=== PATIENT | female | born 1955 | race Caucasian/White ===

== ENCOUNTER 2019-04-20 15:54 | Inpatient (IN) | payer BC, OTHER ==
[~2019-04-20] VITALS: Ht 152.4 cm; Wt 63.2 kg
[~2019-04-20 15:54] MED LIST: ACET500T84 PO; ALPR0.25 PO; CARV12.579 PO; CITA10TA5 PO; LOVA20TA PO; OMEP20CA16 PO; SIMV40TA3 PO; [UNRECOGNIZED DRUG - REMARK]
--- NOTE | 2019-04-20 16:16 | ERD ---
ER Documentation Chief Complaint Chief Complaint Chest pain HPI The patient is a 63-year-old female, presenting to the ER from [facility] emergency department for admission because of acute chest pain. She is boarding in the emergency department. She had a stress test this morning, half way to the stress test she began to have left-sided chest pain radiating up to the left side of the neck; therefore the stress test was aborted, according to the chart there were T wave inversion. She was then treated with 3 nitroglycerin with minimal response and sent to the [facility] ER for evaluation. She received morphine about 12 PM with good response. The pain is not coming back 05/19, she denies chest pain with vomiting/diaphoresis, dyspnea, dominant pain, vomiting. She used to smoke until 20 years ago I have reviewed extensively work-ups from [facility] emergency department Past medical history: Anxiety, dyslipidemia, depression, CAD, cervical and lumbar radiculopathy Past surgical history: None ROS All systems reviewed and are negative except as per history of present illness. Medications Home Meds Reported Medications Alprazolam* (Xanax*) 0.25 Mg Tablet, 0.25 MG PO for ANXIETY, TAB 07/10/15 Omeprazole* (Omeprazole*) 20 Mg Capsule.dr, 20 MG PO DAILY 03/14/12 Simvastatin (Simvastatin) 40 Mg Tablet, 40 MG PO HS 03/14/12 Carvedilol* (Carvedilol*) 12.5 Mg Tablet, 12.5 MG PO BID 03/14/12 Citalopram Hydrobromide* (Citalopram Hydrobromide*) 10 Mg Tablet, 10 MG PO DAILY 03/14/12 Lovastatin* (Lovastatin*) 20 Mg Tablet, 20 MG PO DAILY 03/14/12 Acetaminophen (Q-Pap Extra Strength) 500 Mg Tablet, 500 MG PO BID 03/14/12 [Family Did Not Bring] No Conflict Check 03/13/12 Allergies Allergies: Coded Allergies: Penicillins (Verified Allergy, Mild, 12/22/13) Codeine (Verified Allergy, Unknown, 12/22/13) PMhx/Soc History of Surgery: Yes (LIPOMA REMOVED FROM BACK, R EAR OPERATION) Anesthesia Reaction: No Hx Neurological Disorder: No Hx Respiratory Disorders: Yes (SOB AT TIMES) Hx Cardiac Disorders: Yes (HTN, HIGH CHOLESTEROL 2 NC) Hx Psychiatric Problems: Yes (ANXIETY) Hx Miscellaneous Medical Probl: No Hx Alcohol Use: Yes (RARE WINE) Hx Substance Use: No Hx Tobacco Use: No (QUIT 2004) Physical Exam Vitals Vital Signs Date Temp Pulse Resp B/P (MAP) Pulse Ox O2 O2 Flow FiO2 Time Delivery Rate 04/20/19 99.0 47 16 141/64 96 16:17 (89) Physical Exam Const: No acute distress. Head: Atraumatic. Eyes: Normal Conjunctiva. ENT: Normal External Ears, Nose and Mouth. Neck: Full range of motion. No meningismus. Resp: Clear to auscultation bilaterally. Cardio: Regular rate and rhythm. Abd: Soft, non distended, normal bowel sounds, non tender. Skin: No petechiae or rashes. Back: No midline or flank tenderness. Ext: No cyanosis, or edema. Neur: Awake and alert. No focal deficit Psych: Normal Mood and Affect. Results 24 hrs Current Medications Medications Dose Sig/Michelle Start Time Status Last (Trade) Ordered Route PRN Stop Time Admin Dose Reason Admin Morphine 2 mg ONCE STAT 04/20/19 DC 04/20/19 Sulfate IV 16:27 16:38 (morphine) 04/20/19 16:29 Ondansetron 4 mg ONCE STAT 04/20/19 DC 04/20/19 HCl (Zofran IV 16:27 16:37 Inj) 04/20/19 16:29 Famotidine 20 mg ONCE ONCE 04/20/19 04/20/19 (Pepcid Iv) IV 17:00 16:54 04/20/19 17:01 Procedures/MDM EKG: Read by emergency physician Rate/Rhythm: Sinus bradycardia 43 beats/min QRS, ST, T-waves: No ST elevation, anterior T wave inversion Impression: Abnormal EKG MEDICAL MAKING DECISION: The patient is a 63-year-old female with multiple cardiac risk factors, presenting with acute chest pain with abnormal EKG, concerning for acute ACS. She was treated with morphine 2 mg IV for recurrent chest pain and Zofran IV for nausea with good response. The differential diagnoses considered include but are not limited to acute coronary syndrome, acute myocardial infarction, pericarditis, pulmonary embolism, aortic dissection, pneumonia, pleural effusion, pneumothorax, GERD, chest wall pain. Departure Diagnosis: Primary Impression: Chest pain Additional Impression: Bradyarrhythmia Condition: Stable Comments I discussed the findings with the patient. I discussed the patient with Dr Luther at , who was made aware of the lab, the treatment, the patient condition. The patient is admitted to [facility] Disclaimer: Inadvertent spelling and grammatical errors are likely due to EHR/dictation software use and do not reflect on the overall quality of patient care. Also, please note that the electronic time recorded on this note does not necessarily reflect the actual time of the patient encounter. DESIREE FRENCH MD Apr 20, 2019 16:16
[2019-04-20] MEDS ORDERED: ONDANSETRON 4 MG INJ IV STA (16:27)
[2019-04-20] MEDS ORDERED: morphine 2 MG INJ IV STA (16:27)
[2019-04-20] MEDS ORDERED: FAMOTIDINE 20 MG INJ IV ONE (17:00)
[2019-04-20] MEDS ORDERED: RANI150T5 PO (17:06)
[2019-04-20] MEDS ORDERED: ALPR0.5T6 PO (17:06)
[2019-04-20] MEDS ORDERED: ACET325T45 PO (17:06)
[2019-04-20] MEDS ORDERED: MELO15TA30 PO (17:07)
[2019-04-20] MEDS ORDERED: ATEN50TA PO (17:07)
[2019-04-20] MEDS ORDERED: OMEP20CA16 PO (17:08)
[2019-04-20] MEDS ORDERED: OMEG1CAP90 PO (17:08)
[2019-04-20] MEDS ORDERED: ENAL5TAB PO (17:09)
[2019-04-20] MEDS ORDERED: NITR0.4T32 SL (17:09)
[2019-04-20] MEDS ORDERED: NACL 0.9% 3 ML SYG IV SCH (17:30)
--- NOTE | 2019-04-20 18:33 | HP ---
Date/Time of Note Date/Time of Note DATE: 04/20/19 TIME: 18:27 Assessment/Plan VTE Prophylaxis SCD applied (from Nsg): Yes Pharmacological prophylaxis: heparin Lines/Catheters IV Catheter Type (from Nrsg): Saline Lock Assessment/Plan Hospital Course 63 yo female with reported history of CAD (though not entirely clear details), hypertension who presents from [place] after positive stress testing - Consult Dr Velasquez for consideration of angiography - Cycle troponins - Check TTE - Aspirin, statin - She is bradycardic so I will hold further beta paul Hypertension: - Continue enalapril HPI/ROS Admit Date/Time Admit Date/Time Hx of Present Illness 63 yo female with reported history of CAD who presents from [place] after abnormal stress test Patient has had exterional angina over past weeks. 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 This was done at [facility]. During stress testing she became hypotensive with chest pain and dizziness. She was given nitro without much relief. She was sent to the ED where troponin was negative. Found to have some bradycardia. Early R wave progression and some T wave abnormaltiies. Sent her for angiography. Currently feels well. No complaints at this time ROS Constitutional: no complaints, improved Eyes: no complaints ENT: no complaints Respiratory: no complaints Cardiovascular: no complaints Gastrointestinal: no complaints Genitourinary: no complaints Musculoskeletal: no complaints Skin: no complaints Neurologic: no complaints Endocrine: no complaints Lymphatic: no complaints Psychological: no complaints, nl mood/affect Immunologic: no complaints PMH/Family/Social Past Medical History Medical History: coronary artery disease Medications Current Medications IV Flush (NS 3 ml) 3 ml PER PROTOCOL IV ; Start 04/20/19 at 17:30 Acetaminophen/ Hydrocodone Bitart ([place] (5/325)) 1 tab Q6H PRN PO .MOD PAIN 4- 6; Start 04/20/19 at 17:30 Aspirin (Aspirin) 81 mg DAILY PO ; Start 04/21/19 at 09:00 Atorvastatin Calcium (Lipitor) 80 mg HS PO ; Start 04/20/19 at 21:00 Alprazolam (Xanax) 0.5 mg DAILY PRN PO ANXIETY; Start 04/20/19 at 17:30 Atenolol (Tenormin) 50 mg DAILY PO ; Start 04/21/19 at 09:00 Enalapril Maleate (Vasotec) 5 mg DAILY PO ; Start 04/21/19 at 09:00 Ranitidine HCl (Zantac) 150 mg Q12 PO ; Start 04/20/19 at 21:00 Coded Allergies: Penicillins (Verified Allergy, Mild, 04/20/19) codeine (Verified Allergy, Unknown, 04/20/19) Past Surgical History Past Surgical Hx: no surgical history Family History Significant Family History: no pertinent family hx Social History Alcohol Use: none Smoking Status: Former smoker Drug Use: none Exam/Review of Systems Vital Signs Vitals Vital Signs Date Temp Pulse Resp B/P (MAP) Pulse Ox O2 O2 Flow FiO2 Time Delivery Rate 04/20/19 99.0 47 16 141/64 96 16:17 (89) Exam Constitutional: alert, oriented, well developed Psych: no complaints, nl mood/affect Head: normocephalic, atraumatic Eyes: nl conjunctiva, EOMI, nl lids, nl sclera, PERRL ENMT: nl external ears & nose, nl lips & teeth, nl nasal mucosa & septum Neck: supple, non-tender Respiratory: clear to auscultation, normal air movement Cardiovascular: regular rate and rhythm, nl pulses Gastrointestinal: soft, nl liver, spleen, non-tender Musculoskeletal: nl extremities to inspection Extremities: normal pulses Neurological: NUMBERER AND WIRER II-XII intact, nl mental status, nl speech, nl strength Skin: nl turgor; No rash or lesions Lymph: nl lymph nodes ZEYAD RAYGOZA MD Apr 20, 2019 18:33
[2019-04-20] MEDS: HYDROCODONE/APAP (5/325) TAB PO PRN (18:44)
[2019-04-20] MEDS ORDERED: KETOROLAC 15 MG INJ IV STA (20:59)
[2019-04-20] MEDS: ATORVASTATIN 80 MG TAB PO SCH (21:26)
[2019-04-20 22:50] VITALS: BP 170/67; PULSE 50; RESP 20; Ht 152.4 cm; Wt 63.2 kg
[2019-04-20 22:55] VITALS: PULSE 49
[2019-04-20] MEDS: ALPRAZOLAM 0.5 MG TAB PO PRN (23:24)
[2019-04-20] MEDS: RANITIDINE 150 MG TAB PO SCH (23:24)
[2019-04-20] MEDS: morphine 2 MG INJ IV PRN (23:25)
[2019-04-21] VITALS (11 sets, daily range): BP systolic 118–168; BP diastolic 55–78; PULSE 46–68; RESP 18–22
[2019-04-21] MEDS: ASPIRIN 81 MG TAB PO SCH (08:58)
[2019-04-21] MEDS: RANITIDINE 150 MG TAB PO SCH ×2 (08:58→20:31)
[2019-04-21] MEDS: ACETAMINOPHEN 325 MG TAB PO PRN ×2 (08:59→19:19)
[2019-04-21] MEDS ORDERED: ATENOLOL 50 MG TAB PO SCH (09:00)
[2019-04-21] MEDS: ENALAPRIL 5 MG TAB PO SCH ×2 (09:00→12:22)
[2019-04-21] MEDS: HYDROCODONE/APAP (5/325) TAB PO PRN (12:35)
[2019-04-21] MEDS: morphine 2 MG INJ IV PRN (13:47)
--- NOTE | 2019-04-21 14:35 | PN ---
Date/Time of Note Date/Time of Note DATE: 04/21/19 TIME: 14:30 Assessment/Plan VTE Prophylaxis Risk score (from Ns)>0 risk: 2 SCD applied (from Ns): No SCD contraindicated: low risk/ambulating Pharmacological prophylaxis: NA/contraindicated Pharm contraindication: low risk/ambulating Lines/Catheters IV Catheter Type (from Nrsg): Saline Lock Assessment/Plan Assessment/Plan 1. Acute chest pain - improved - noted abnl stress test at outside hospital - negative serial troponins - morphine and Nitro PRN pain - ECHO pending - Cardiology consultation placed for further recommendations. Patient followed by Dr. Murray as outpatient 2. HTN - stable - continue current medications 3. Bradycardia - hold for BB 4. Disposition - Cardiology consultation pending for further recommendations Result Diagram: 04/21/1951804/21/19518 Results 24hrs Laboratory Tests Test 04/20/19 19:43 04/21/19 00:41 04/21/19 05:19 Sodium Level 141 139 Potassium Level 4.4 4.7 Chloride Level 109 108 Carbon Dioxide Level 25 24 Anion Gap 7 7 Blood Urea Nitrogen 14 17 Creatinine 0.66 0.72 Est Glomerular Filtrat Rate mL/min > 60 > 60 Glucose Level 93 97 Calcium Level 9.3 9.3 Troponin I < 0.012 < 0.012 < 0.012 White Blood Count 6.7 6.4 Red Blood Count 3.96 L 3.99 L Hemoglobin 12.8 12.9 Hematocrit 37.7 37.8 Mean Corpuscular Volume 95.2 94.7 Mean Corpuscular Hemoglobin 32.3 32.3 Mean Corpuscular Hemoglobin Concent 34.0 34.1 Red Cell Distribution Width 11.1 L 11.1 L Platelet Count 225 225 Mean Platelet Volume 9.4 9.4 Immature Granulocytes % 0.100 0.300 Neutrophils % 55.2 37.9 L Lymphocytes % 39.6 54.4 H Monocytes % 4.0 5.5 Eosinophils % 0.7 1.3 Basophils % 0.4 0.6 Nucleated Red Blood Cells % 0.0 0.0 Immature Granulocytes # 0.010 0.020 Neutrophils # 3.7 2.4 Lymphocytes # 2.7 3.5 H Monocytes # 0.3 0.4 Eosinophils # 0.1 0.1 Basophils # 0.0 0.0 Nucleated Red Blood Cells # 0.0 0.0 Creatine Kinase 98 92 Creatine Kinase Index 1.0 1.1 Creatinine Kinase MB (Mass) 0.98 0.97 Hemoglobin A1c 6.0 H Total Bilirubin 0.7 Direct Bilirubin 0.00 Indirect Bilirubin 0.7 Aspartate Amino Transf (AST/SGOT) 30 Alanine Aminotransferase (ALT/SGPT) 39 Alkaline Phosphatase 63 Total Protein 6.3 Albumin 3.7 Globulin 2.60 Albumin/Globulin Ratio 1.42 Subjective 24 Hr Interval Summary Free Text/Dictation Patient states chest pain is slightly better but still present. No acute overnight events. Exam/Review of Systems Exam Vitals Vital Signs Date Temp Pulse Resp B/P (MAP) Pulse Ox O2 O2 Flow FiO2 Time Delivery Rate 04/21/19 97.8 68 22 146/71 96 Room Air 12:11 (96) 04/20/19 2.0 22:50 Intake and Output 04/20/19 04/20/19 04/21/19 1515:00 23:00 07:00 IntakeIntake Total 300 ml BalanceBalance 300 ml Exam General: No Acute distress Neck: Supple Chest: Nontender Lungs: Clear to auscultation bilaterally no crackles rales or wheezing Heart: Normal S1-S2, Regular rhythm and rate. No murmur, S3, or S4 Abdomen: Soft , nontender, nondistended , bowel sounds are present. No guarding no rebound tenderness Extremities: Normal to inspection, no edema no cyanosis Results Results 24hrs Laboratory Tests Test 04/20/19 19:43 04/21/19 00:41 04/21/19 05:19 Sodium Level 141 139 Potassium Level 4.4 4.7 Chloride Level 109 108 Carbon Dioxide Level 25 24 Anion Gap 7 7 Blood Urea Nitrogen 14 17 Creatinine 0.66 0.72 Est Glomerular Filtrat Rate mL/min > 60 > 60 Glucose Level 93 97 Calcium Level 9.3 9.3 Troponin I < 0.012 < 0.012 < 0.012 White Blood Count 6.7 6.4 Red Blood Count 3.96 L 3.99 L Hemoglobin 12.8 12.9 Hematocrit 37.7 37.8 Mean Corpuscular Volume 95.2 94.7 Mean Corpuscular Hemoglobin 32.3 32.3 Mean Corpuscular Hemoglobin Concent 34.0 34.1 Red Cell Distribution Width 11.1 L 11.1 L Platelet Count 225 225 Mean Platelet Volume 9.4 9.4 Immature Granulocytes % 0.100 0.300 Neutrophils % 55.2 37.9 L Lymphocytes % 39.6 54.4 H Monocytes % 4.0 5.5 Eosinophils % 0.7 1.3 Basophils % 0.4 0.6 Nucleated Red Blood Cells % 0.0 0.0 Immature Granulocytes # 0.010 0.020 Neutrophils # 3.7 2.4 Lymphocytes # 2.7 3.5 H Monocytes # 0.3 0.4 Eosinophils # 0.1 0.1 Basophils # 0.0 0.0 Nucleated Red Blood Cells # 0.0 0.0 Creatine Kinase 98 92 Creatine Kinase Index 1.0 1.1 Creatinine Kinase MB (Mass) 0.98 0.97 Hemoglobin A1c 6.0 H Total Bilirubin 0.7 Direct Bilirubin 0.00 Indirect Bilirubin 0.7 Aspartate Amino Transf (AST/SGOT) 30 Alanine Aminotransferase (ALT/SGPT) 39 Alkaline Phosphatase 63 Total Protein 6.3 Albumin 3.7 Globulin 2.60 Albumin/Globulin Ratio 1.42 Medications Medication Current Medications IV Flush (NS 3 ml) 3 ml PER PROTOCOL IV ; Start 04/20/19 at 17:30 Acetaminophen/ Hydrocodone Bitart ([place] (5/325)) 1 tab Q6H PRN PO .MOD PAIN 4- 6 Last administered on 04/21/19 12:35; Admin Dose 1 TAB; Start 04/20/19 at 17:30 Aspirin (Aspirin) 81 mg DAILY PO Last administered on 04/21/19 08:58; Admin Dose 81 MG; Start 04/21/19 at 09:00 Atorvastatin Calcium (Lipitor) 80 mg HS PO Last administered on 04/20/19 21:26; Admin Dose 80 MG; Start 04/20/19 at 21:00 Alprazolam (Xanax) 0.5 mg DAILY PRN PO ANXIETY Last administered on 04/20/19 23:24; Admin Dose 0.5 MG; Start 04/20/19 at 17:30 Enalapril Maleate (Vasotec) 5 mg DAILY PO Last administered on 04/21/19 12:22; Admin Dose 5 MG; Start 04/21/19 at 09:00 Ranitidine HCl (Zantac) 150 mg Q12 PO Last administered on 04/21/19 08:58; Admin Dose 150 MG; Start 04/20/19 at 21:00 Morphine Sulfate (morphine) 2 mg Q4H PRN IV SEVERE PAIN LEVEL 7-10 Last administered on 04/21/19at 13:47; Admin Dose 2 MG; Start 04/20/19 at 21:00 Acetaminophen (Tylenol Tab) 650 mg Q6H PRN PO MILD PAIN(1-3)OR ELEVATED TEMP Last administered on 04/21/19at 08:59; Admin Dose 650 MG; Start 04/21/19 at 06:30 BENJAMIN MILLER MD Apr 21, 2019 14:35
[2019-04-21] MEDS ORDERED: NITROGLYCERIN (SL) 0.4 MG TAB SL PRN (15:00)
--- NOTE | 2019-04-21 18:01 | CONS ---
DATE OF ADMISSION: 04/20/2019 DATE OF CONSULTATION: 04/21/2019 REASON FOR CONSULTATION: Chest pain, assess for acute coronary syndrome. REQUESTING PHYSICIAN: Dr. Yana Burnett from the hospitalist service. HISTORY OF PRESENT ILLNESS: Ms. 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 During stress test, the patient developed extreme tremulousness, chest pain and 911 was called. The patient was brought to the outside hospital [place] where upon arrival, the patient did have bradycardia to the 50s, but stable blood pressures and negative troponin. The patient was transferred to [facility] due to insurance reasons. Since arrival at [facility], the patient has again had some bradycardias overnight to the 40s and dur ing the day in the 50s. The patient's blood pressure has been somewhat labile, most recently has bee n 120s to 140s. The patient thus far here has had 3 negative troponins, ruling out acute myocardial infarction. Patient states that she has ongoing chest pain which I am reproducing on palpation of he r chest. PAST MEDICAL HISTORY: As above in HPI. MEDICATIONS CURRENTLY IN HOSPITAL: 1. Aspirin 81 mg. 2. Vasotec 5 mg daily. 3. Tylenol p.r.n. 4. Lipitor 80 mg daily. 5. Zantac 150 mg q.12. 6. Morphine p.r.n. 7. [place] p.r.n. 8. Xanax p.r.n. ALLERGIES: 1. PENICILLIN. 2. CODEINE. SOCIAL HISTORY: No current tobacco, ETOH or illicit drug use. FAMILY HISTORY: No history of sudden cardiac or early CAD. REVIEW OF SYSTEMS: As above in HPI. CONSTITUTIONAL: No fevers or chills. PULMONARY: No current shortness of breath. CARDIOVASCULAR: Chest pain. GASTROINTESTINAL: No vomiting. GENITOURINARY: No hematuria. MUSCULOSKELETAL: Degenerative joint disease. PSYCHIATRIC: Positive psych history. NEUROLOGIC: No documented CVA. PHYSICAL EXAMINATION VITAL SIGNS: Temperature 97.8, blood pressure 146/71, pulse 68, respiratory rate 22, satting 96%. GENERAL: The patient is alert, awake, very anxious, tremulousness. NECK: JVP approximately 8 to 9 cm of water. CHEST: Fair movement throughout with moderate visibility of chest pain on palpation of her chest. HEART: Regular rate and rhythm. Normal S1, S2, I/ systolic murmur, nondisplaced PMI. ABDOMEN: Positive bowel sounds, soft. EXTREMITIES: No edema, 1+ pulses bilateral posterior tibial. LABORATORY DATA: Most recently from today, white count of 6.4, hemoglobin 12.9, platelet count 325. Sodium 139, potassium was 3.7, creatinine 0.7, ____. IMAGING STUDIES: As above in HPI. No further imaging studies for my review at this time with the est x-ray that revealed blunting of the left costal angle and mild cardiomegaly. ECG: From today reveals marked sinus bradycardia, rate of 43, normal axis intervals with anterior T- wave inversion. IMPRESSION: 1. Chest pain, assess for acute coronary syndrome with the patient developed chest pain and reported EKG changes during stress testing, now been transferred to hospital. 2. Abnormal electrocardiogram with anterior T-wave inversions. 3. Bradycardia, intermittent down to the 40s. 4. Tremulousness. 5. Anxiety. 6. Psychiatric disorder. 7. Dyslipidemia. RECOMMENDATIONS: 1. At this time, the patient will be maintained on telemetry monitoring to follow rhythm and rates c losely. 2. Continue patient's aspirin at this time and discontinue the patient's Vasotec. We will consider initiation of oral nitrates. Follow the patient's symptomatology closely. 3. The patient is status post negative troponin x3, ruling out acute myocardial infarction. 4. We will schedule the patient for a cardiac catheterization to take place likely tomorrow a.m. to further assess possibly significant obstructive coronary artery disease lending to chest pain, EKG deneen during stress test and admit to the hospital. Thank you for allowing me to take part in the care of this patient. I will continue to follow along very closely with you, with recommendations to be made as the patient [facility]. Dictated By: JAYANT TERESA/NTS Conf#: [id number] DID#: [id number] CC: ZEYAD RAYGOZA MD; YANA BURNETT MD;*[facility]*
--- NOTE | 2019-04-21 18:42 | RADRPT ---
Echocardiogram Report Patient Name: MEL FIGUEROAPatient ID: [id number] : 1955 (63y 9m)Study Date: 04/21/2019 8:37:36 AM Gender: FAccession #: [id number] Tech: SN Location: [facility] Ref.Physician: ZEYAD RAYGOZA Height(Cm): BSA: Weight(Kg): Quality: AdequateOrder Physician: ZEYAD RAYGOZA Account #: Procedures: Echocardiographic Report: Transthoracic echocardiogram with complete 2D, M-Mode, and doppler examination. Indications: Evaluate Left Ventricular function. UA. Measurements: 2D/M Mode Doppler Measurement Value Normal Range Measurement Value Normal Range LVIDd 2D 3.6 [ 3.8 - 5.2 ] cm AV Peak Inderjit 1.6 [ 100.0 - 170.0 ] cm/sec LVIDs 2D 2.3 [ 2.2 - 3.5 ] cm AV Peak PG 10.0 [ 2.0 - 9.0 ] mmHg LVPWd 2D 0.9 [ 0.6 - 0.9 ] cm LVOT Peak Inderjit 1.1 [ 70.0 - 110.0 ] cm/sec IVSd 2D 1.6 [ 0.6 - 0.9 ] cm LVOT Peak PG 5.0 [ 2.0 - 6.0 ] mmHg AoR Diam 2D 2.6 [ 2.3 - 3.1 ] cm MV E Peak Inderjit 0.8 [ 60.0 - 130.0 ] cm/sec EDV 2D 55.9 [ 46.0 - 106.0 ] ml MV A Peak Inderjit 0.9 [ 100.0 - 120.0 ] cm/sec ESV 2D 18.3 [ 14.0 - 42.0 ] ml MV E/A 0.9 [ 0.8 - 1.5 ] ratio EF 2D 67.3 [ 54.0 - 74.0 ] percent MV Decel Time 257 [ 104 - 258 ] msec LA Dimen 2D 3.1 [ 2.7 - 3.8 ] cm Lat E` Inderjit 0.1 [ 10.0 - 15.0 ] cm/sec Lateral E/E` 10.8 [ 1.0 - 2.0 ] ratio MV E/A 0.9 [ 0.8 - 1.5 ] ratio TR Peak Inderjit 2.8 [ 100.0 - 280.0 ] cm/sec TR Peak PG 32.0 mmHg RVSP 35.0 [ 10.0 - 36.0 ] mmHg RA Pressure 3.0 mmHg Findings: Left Ventricle: Normal left ventricular systolic function. Severe asymmetric septal hypertrophy. Reduced left ventricular cavity size. Ejection fraction is visually estimated at 55-60 %. Tissue Doppler/Mitral Doppler indices are consistent with impaired relaxation (Stage I diastolic dysfunction). Right Ventricle: Normal right ventricular size. Normal right ventricular systolic function. Left Atrium: The left atrium is normal in size. Right Atrium: The right atrium is normal in size. Mitral Valve: Normal appearance and function of the mitral valve with trace physiologic regurgitation. Aortic Valve: Normal appearance of the aortic valve. No significant aortic stenosis or insufficiency. Tricuspid Valve: Normal appearance of the tricuspid valve. The estimated Peak RVSP is 35 mmHg. There is trace tricuspid regurgitation. Pulmonic Valve: Pulmonic valve not well visualized. Pericardium: Normal pericardium with no significant pericardial effusion. Aorta: Normal aortic root. IVC: Normal size and normal respiratory collapse consistent with normal right atrial pressure. Conclusions: Normal left ventricular systolic function. Severe asymmetric septal hypertrophy. Reduced left ventricular cavity size. Ejection fraction is visually estimated at 55-60 %. Tissue Doppler/Mitral Doppler indices are consistent with impaired relaxation (Stage I diastolic dysfunction). Normal appearance and function of the mitral valve with trace physiologic regurgitation. Normal appearance of the tricuspid valve. The estimated Peak RVSP is 35 mmHg. There is trace tricuspid regurgitation. Electronically Signed By: Fredy Velasquez 2019-04-21 18:42:41 PDT
[2019-04-21] MEDS: ATORVASTATIN 80 MG TAB PO SCH (20:31)
[2019-04-21] MEDS: ALPRAZOLAM 0.5 MG TAB PO PRN (21:44)
[2019-04-22] VITALS (27 sets, daily range): BP systolic 109–177; BP diastolic 57–79; PULSE 46–94; RESP 13–20
[2019-04-22] MEDS: ACETAMINOPHEN 325 MG TAB PO PRN ×3 (00:16→21:07)
[2019-04-22] MEDS ORDERED: DIPHENHYDRAMINE 50 MG CAP PO ONE (08:00)
[2019-04-22] MEDS ORDERED: DIAZEPAM 5 MG TAB PO ONE (08:00)
[2019-04-22] MEDS: ASPIRIN 81 MG TAB PO SCH (08:36)
[2019-04-22] MEDS: ENALAPRIL 5 MG TAB PO SCH (08:36)
[2019-04-22] MEDS: RANITIDINE 150 MG TAB PO SCH ×2 (08:36→21:02)
[2019-04-22] MEDS ORDERED: FENTAnyl 50 MCG/ML VIAL ONE (09:38)
[2019-04-22] MEDS ORDERED: MIDAZOLAM 1 MG/ML 2 ML INJ ONE (09:38)
[2019-04-22] MEDS ORDERED: HEPARIN 1000 UNITS/ML 10 ML INJ ONE (09:38)
[2019-04-22] MEDS ORDERED: LIDOCAINE 1% (MDV) 20 ML INJ ONE (09:38)
[2019-04-22] MEDS ORDERED: NITROGLYCERIN (IC) 100 MCG/ML INJ ONE (09:38)
[2019-04-22] MEDS ORDERED: VERAPAMIL 5 MG INJ ONE (09:38)
[2019-04-22] MEDS ORDERED: IODIXANOL LOCM 100 ML BTL ONE (09:38)
--- NOTE | 2019-04-22 10:20 | SIPON ---
Date/Time of Note Date/Time of Note DATE: 04/22/19 TIME: 10:18 Operative Report Preoperative Diagnosis 1.chest pain 2.abnl mpi Postoperative Diagnosis 1.nonobstructive cad Operation/Procedure Performed 1.[facility] Surgeon see signature line nurse first assist 1.[place] Anesthesia: moderate sedation Estimated blood loss: minimal Transfusion Required none Specimen none Grafts/Implants none Complications none JAYANT SPAIN Apr 22, 2019 10:20
[2019-04-22] MEDS ORDERED: SOD CHLORIDE 0.9% 1,000 ML IV SCH ×2 (10:24→22:30)
--- NOTE | 2019-04-22 10:24 | CONS ---
Assessment/Plan Assessment/Plan Hospital Course (Demo Recall) IMPRESSION: 1. Chest pain, assess for acute coronary syndrome with the patient developed chest pain and reported EKG changes during stress testing, now been transferred to hospital. 2. Abnormal electrocardiogram with anterior T-wave inversions. 3. Bradycardia, intermittent down to the 40s. 4. Tremulousness. 5. Anxiety. 6. Psychiatric disorder. 7. Dyslipidemia. REcc: -Tele -Continue asa -Contnue statin -Continue ACEI -Now s/p [facility] with no sig cad. OK for d/c later in afternoon as long as stable s/p [facility] with outpatient f/u Consultation Date/Type/Reason Admit Date/Time Apr 21, 2019 at 23:14 Initial Consult Date 04/21/19 Type of Consult Cardiology Reason for Consultation Chest pain/abnl mpi Requesting Provider: BENJAMIN MILLER MD Date/Time of Note DATE: 04/22/19 TIME: 10:20 Exam/Review of Systems Vital Signs Vitals Vital Signs Date Temp Pulse Resp B/P (MAP) Pulse Ox O2 O2 Flow FiO2 Time Delivery Rate 04/22/19 46 08:00 04/22/19 97.9 20 140/70 95 Room Air 07:20 (93) 04/21/19 2.0 15:20 Intake and Output 04/21/19 04/21/19 04/22/19 1515:00 23:00 07:00 IntakeIntake Total 930 ml 600 ml BalanceBalance 930 ml 600 ml Exam Exam Review of Systems: CONSTITUTIONAL: No fevers, chills. PULMONARY: No sob CARDIOVASCULAR: No chest pain/palpitations GASTROINTESTINAL: No nausea/vomiting. GENITOURINARY: No hematuria/dysuria. MUSCULOSKELETAL: No myagias/arthalgias. PSYCHIATRIC: The patient denies depression. NEUROLOGIC: No weakness Constitutional: alert, oriented Psych: no complaints Head: normocephalic ENMT: mucosa pink and moist Neck: supple, jvd (8 cm water) Respiratory: clear to auscultation Cardiovascular: regular rate and rhythm Gastrointestinal: soft, non-tender Musculoskeletal: muscle tone (normal) Extremities: edema (none) Neurological: other (No focal deficits) Labs Result Diagram: 04/22/19 0552 04/22/19 0552 Results 24hrs Laboratory Tests Test 04/22/19 05:52 White Blood Count 5.8 Red Blood Count 4.15 L Hemoglobin 13.2 Hematocrit 38.4 Mean Corpuscular Volume 92.5 Mean Corpuscular Hemoglobin 31.8 Mean Corpuscular Hemoglobin Concent 34.4 Red Cell Distribution Width 11.2 L Platelet Count 223 Mean Platelet Volume 9.3 Immature Granulocytes % 0.200 Neutrophils % 27.0 L Lymphocytes % 63.4 H Monocytes % 5.6 Eosinophils % 3.3 Basophils % 0.5 Nucleated Red Blood Cells % 0.0 Immature Granulocytes # 0.010 Neutrophils # 1.6 Lymphocytes # 3.7 H Monocytes # 0.3 Eosinophils # 0.2 Basophils # 0.0 Nucleated Red Blood Cells # 0.0 Prothrombin Time 12.0 Prothrombin Time Ratio 0.9 INR International Normalized Ratio 0.88 Activated Partial Thromboplast Time 31.1 Sodium Level 140 Potassium Level 4.4 Chloride Level 107 Carbon Dioxide Level 25 Anion Gap 8 Blood Urea Nitrogen 16 Creatinine 0.66 Est Glomerular Filtrat Rate mL/min > 60 Glucose Level 100 Calcium Level 9.4 Medications Medications Current Medications IV Flush (NS 3 ml) 3 ml PER PROTOCOL IV ; Start 04/20/19 at 17:30 Acetaminophen/ Hydrocodone Bitart ([place] (5/325)) 1 tab Q6H PRN PO .MOD PAIN 4- 6 Last administered on 04/21/19 12:35; Admin Dose 1 TAB; Start 04/20/19 at 17:30 Aspirin (Aspirin) 81 mg DAILY PO Last administered on 04/22/19 08:36; Admin Dose 81 MG; Start 04/21/19 at 09:00 Atorvastatin Calcium (Lipitor) 80 mg HS PO Last administered on 04/21/19 20:31; Admin Dose 80 MG; Start 04/20/19 at 21:00 Alprazolam (Xanax) 0.5 mg DAILY PRN PO ANXIETY Last administered on 04/21/19 21:44; Admin Dose 0.5 MG; Start 04/20/19 at 17:30 Enalapril Maleate (Vasotec) 5 mg DAILY PO Last administered on 04/22/19 08:36; Admin Dose 5 MG; Start 04/21/19 at 09:00 Ranitidine HCl (Zantac) 150 mg Q12 PO Last administered on 04/22/19 08:36; Admin Dose 150 MG; Start 04/20/19 at 21:00 Acetaminophen (Tylenol Tab) 650 mg Q6H PRN PO MILD PAIN(1-3)OR ELEVATED TEMP Last administered on 04/22/19at 08:45; Admin Dose 650 MG; Start 04/21/19 at 06:30 Nitroglycerin (Nitroglycerin (Sl Tab) 0.4 Mg) 1 tab Q5M PRN SL ANGINA; Start 04/21/19 at 15:00 JAYANT SPAIN Apr 22, 2019 10:24
[2019-04-22] MEDS ORDERED: AL HYDROX/MG HYDROX/SIMETH 30 ML CUP PO PRN (10:30)
[2019-04-22] MEDS ORDERED: ACETAMINOPHEN 325 MG TAB PO PRN (10:30)
--- NOTE | 2019-04-22 11:15 | CARRPT ---
DATE OF PROCEDURE: 04/21/2019 TYPE OF PROCEDURE: 1. Left heart catheterization. 2. Coronary angiography. 3. Measurement of left ventricular end-diastolic pressure. 4. Moderate conscious sedation. ATTENDING PHYSICIAN: Jayant Velasquez MD REFERRING PHYSICIAN: Dr. Luther and Dr. Burnett. INDICATION: Chest pain, positive stress test findings. TYPE OF ANESTHESIA: Conscious local. BRIEF HISTORY AND HOSPITAL COURSE: Mrs. 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 Patient subsequently referred for left heart catheterization possibly significant scarring with symptoms of chest pain. Positive stress . DESCRIPTION OF PROCEDURE: After informed consent was obtained, the patient was brought to [facility] and the [facility] cardiac catheterization lab where her right radial area was prepped and draped in usual sterile fashion. A 2% lidocaine was infiltrated into right radial area to achieve adequate ane sthesia. Using the modified Seldinger technique, the radial artery was cannulated and a 6-Australian art erial sheath was placed. A 6-Australian JL3.5 catheter was used initially to cannulate the left main cor onary ostium, but due to dampening this was exchanged for a 5-Australian was then used to cannulate the left main coronary ostium. With contrast injection, most recently coronary sustained. rem ained in place. After multiple contrast injections, the left coronary system and used to cannulate t he right coronary arterial ostium. With contrast injection, multiple views of right coronary system were obtained. was then used to cross the LV. LVEDP was measured and pullback across the aort ic valve to assess for significant gradient, which there was not and removed. PROCEDURE: The patient's sheath was removed. TR band was applied. There were no noted complication s. FINDINGS: 1. Coronary angiography. Short left main, no significant stenoses, a 4 mm LAD proximally is a 3.5 m m vessel, has no significant focal stenoses and the mid portion of the LAD, there is 20% stenosis jus t at the bifurcation with a diagonal which is a sub-2 mm vessel, no focal stenosis of the proximal br anching diagonal 2 mm with no significant focal stenoses. There exists a ramus branch 2.5 mm vessel with an ostial 30% stenosis. The circumflex proximally is a 2.5 mg vessel, has no significant focal stenoses throughout entirety. Left distal branching obtuse marginal sub-2 mm vessel with no signific ant focal stenoses. The right coronary artery proximally is a 3.5 mm vessel in its midportion, has a 20% to 30% stenosis. The remainder of the right coronary artery is free of focal stenosis, is a dom inant vessel and therefore gives off a 3 mm PDA with no significant focal stenoses and a 2.5 mm poste rolateral branch with no significant focal stenoses. Measured left ventricular end diastolic pressure of 17. No significant aortic stenosis by gradient. TOTAL FLUOROSCOPY TIME: 5 minutes. TOTAL CONTRAST: 60 mL. IMPRESSION: 1. Mild to moderate nonobstructive coronary artery disease. 2. High normal left heart filling pressures. 3. No significant by gradient. RECOMMENDATIONS: In light of procedure findings at this time, we would: 1. Maximize medical management. 2. Aggressive risk factor reduction. 3. The patient will be readmitted to the telemetry for post-cath observation and probable discharge later this afternoon. Dictated By: JAYANT TERESA/MARCO A Conf#: [id number] DID#: [id number] CC: BENJAMIN BURNETT MD; ZEYAD LUTHER MD;*End*
[2019-04-22] MEDS: HYDROCODONE/APAP (5/325) TAB PO PRN ×2 (11:41→14:28)
--- NOTE | 2019-04-22 14:27 | PN ---
Date/Time of Note Date/Time of Note DATE: 04/22/19 TIME: 14:27 Assessment/Plan VTE Prophylaxis Risk score (from Nsg)>0 risk: 2 SCD applied (from Nsg): No SCD contraindicated: low risk/ambulating Pharmacological prophylaxis: other Lines/Catheters IV Catheter Type (from Nrsg): Saline Lock Assessment/Plan Assessment/Plan 1. Acute chest pain- resolved - s/p LHC and no acute obstructive coronary disease noted - Cleared for discharge from Cardiology standpoint if remains stable - negative serial troponins - morphine and Nitro PRN pain 2. HTN - stable - increased JULIA for better BP control 3. Bradycardia - hold BB 4. Disposition - Patient with pain in leg and high anxiety. When pain improves and remains stable will d/c home Result Diagram: 04/22/19 0552 04/22/19 0552 Results 24hrs Laboratory Tests Test 04/22/19 05:52 White Blood Count 5.8 Red Blood Count 4.15 L Hemoglobin 13.2 Hematocrit 38.4 Mean Corpuscular Volume 92.5 Mean Corpuscular Hemoglobin 31.8 Mean Corpuscular Hemoglobin Concent 34.4 Red Cell Distribution Width 11.2 L Platelet Count 223 Mean Platelet Volume 9.3 Immature Granulocytes % 0.200 Neutrophils % 27.0 L Lymphocytes % 63.4 H Monocytes % 5.6 Eosinophils % 3.3 Basophils % 0.5 Nucleated Red Blood Cells % 0.0 Immature Granulocytes # 0.010 Neutrophils # 1.6 Lymphocytes # 3.7 H Monocytes # 0.3 Eosinophils # 0.2 Basophils # 0.0 Nucleated Red Blood Cells # 0.0 Prothrombin Time 12.0 Prothrombin Time Ratio 0.9 INR International Normalized Ratio 0.88 Activated Partial Thromboplast Time 31.1 Sodium Level 140 Potassium Level 4.4 Chloride Level 107 Carbon Dioxide Level 25 Anion Gap 8 Blood Urea Nitrogen 16 Creatinine 0.66 Est Glomerular Filtrat Rate mL/min > 60 Glucose Level 100 Calcium Level 9.4 Subjective 24 Hr Interval Summary Free Text/Dictation Patient is complaining of pain in her left leg and having a panic attack because not feeling well. Calmed patient down and assured she did well following LHC. Exam/Review of Systems Exam Vitals Vital Signs Date Temp Pulse Resp B/P (MAP) Pulse Ox O2 O2 Flow FiO2 Time Delivery Rate 04/22/19 98.0 66 20 161/78 93 Room Air 13:39 (105) 04/22/19 2.0 12:30 Intake and Output 04/21/19 04/21/19 04/22/19 1515:00 23:00 07:00 IntakeIntake Total 930 ml 600 ml BalanceBalance 930 ml 600 ml Exam General: distress secondary to pain and anxiety Neck: Supple Chest: Nontender Lungs: Clear to auscultation bilaterally no crackles rales or wheezing Heart: Normal S1-S2, Regular rhythm and rate. No murmur, S3, or S4 Abdomen: Soft , nontender, nondistended , bowel sounds are present. No guarding no rebound tenderness Extremities: Normal to inspection, no edema no cyanosis Results Results 24hrs Laboratory Tests Test 04/22/19 05:52 White Blood Count 5.8 Red Blood Count 4.15 L Hemoglobin 13.2 Hematocrit 38.4 Mean Corpuscular Volume 92.5 Mean Corpuscular Hemoglobin 31.8 Mean Corpuscular Hemoglobin Concent 34.4 Red Cell Distribution Width 11.2 L Platelet Count 223 Mean Platelet Volume 9.3 Immature Granulocytes % 0.200 Neutrophils % 27.0 L Lymphocytes % 63.4 H Monocytes % 5.6 Eosinophils % 3.3 Basophils % 0.5 Nucleated Red Blood Cells % 0.0 Immature Granulocytes # 0.010 Neutrophils # 1.6 Lymphocytes # 3.7 H Monocytes # 0.3 Eosinophils # 0.2 Basophils # 0.0 Nucleated Red Blood Cells # 0.0 Prothrombin Time 12.0 Prothrombin Time Ratio 0.9 INR International Normalized Ratio 0.88 Activated Partial Thromboplast Time 31.1 Sodium Level 140 Potassium Level 4.4 Chloride Level 107 Carbon Dioxide Level 25 Anion Gap 8 Blood Urea Nitrogen 16 Creatinine 0.66 Est Glomerular Filtrat Rate mL/min > 60 Glucose Level 100 Calcium Level 9.4 Medications Medication Current Medications IV Flush (NS 3 ml) 3 ml PER PROTOCOL IV ; Start 04/20/19 at 17:30 Acetaminophen/ Hydrocodone Bitart ([place] (5/325)) 1 tab Q6H PRN PO .MOD PAIN 4- 6 Last administered on 04/22/19at 11:41; Admin Dose 1 TAB; Start 04/20/19 at 17:30 Aspirin (Aspirin) 81 mg DAILY PO Last administered on 04/22/19at 08:36; Admin Dose 81 MG; Start 04/21/19 at 09:00 Atorvastatin Calcium (Lipitor) 80 mg HS PO Last administered on 04/21/19at 20:31; Admin Dose 80 MG; Start 04/20/19 at 21:00 Alprazolam (Xanax) 0.5 mg DAILY PRN PO ANXIETY Last administered on 04/21/19 21:44; Admin Dose 0.5 MG; Start 04/20/19 at 17:30 Enalapril Maleate (Vasotec) 5 mg DAILY PO Last administered on 04/22/19at 08:36; Admin Dose 5 MG; Start 04/21/19 at 09:00 Ranitidine HCl (Zantac) 150 mg Q12 PO Last administered on 04/22/19 08:36; Admin Dose 150 MG; Start 04/20/19 at 21:00 Acetaminophen (Tylenol Tab) 650 mg Q6H PRN PO MILD PAIN(1-3)OR ELEVATED TEMP Last administered on 04/22/19at 08:45; Admin Dose 650 MG; Start 04/21/19 at 06:30 Nitroglycerin (Nitroglycerin (Sl Tab) 0.4 Mg) 1 tab Q5M PRN SL ANGINA; Start 04/21/19 at 15:00 Acetaminophen (Tylenol Tab) 650 mg Q4H PRN PO NON-CARDIAC PAIN LEVEL (1-3); Start 04/22/19 at 10:30 Al Hydrox/Mg Hydrox/Simethicone (Mag-Al Plus) 30 ml Q4H PRN PO GASTROINTESTINAL UPSET; Start 04/22/19 at 10:30 Ondansetron HCl (Zofran Inj) 4 mg Q4H PRN IV NAUSEA AND/OR VOMITING; Start 04/22/19 at 10:30 Sodium Chloride 1,000 ml @ 75 mls/hr [id number] IV Last administered on 04/22/19at 10:36; Admin Dose 75 MLS/HR; Start 04/22/19 at 10:24; Stop 04/22/19 at 15:23 BENJAMIN MILLER MD Apr 22, 2019 14:27
[2019-04-22] MEDS ORDERED: traMADol 50 MG TAB PO PRN (14:30)
[2019-04-22] MEDS: ONDANSETRON 4 MG INJ IV PRN ×2 (14:32→23:34)
--- NOTE | 2019-04-22 14:57 | RADRPT ---
Vent Rate: 54 bpm RR Interval: 1112 msec [place] Interval: 175 msec QRS Duration: 95 msec QT Interval: 413 msec QTC Interval: 392 msec P-R-T [place]: 46 - 38 - 5 degrees Sinus rhythm...normal P axis, V-rate 50- 99 Abnormal T, consider ischemia, anterior leads...T <-0.20mV, V2-V4 Electronically Signed By: Robert Escobar
[2019-04-22] MEDS: KETOROLAC 15 MG INJ IV PRN ×2 (16:13→23:45)
[2019-04-22] MEDS: ATORVASTATIN 80 MG TAB PO SCH (21:02)
[2019-04-22] MEDS: ALPRAZOLAM 0.5 MG TAB PO PRN (21:07)
[2019-04-22] MEDS: hydrALAzine 20 MG INJ IV PRN (22:09)
[2019-04-22] MEDS ORDERED: IBUPROFEN 600 MG TAB PO ONE (23:00)
[2019-04-23] VITALS (11 sets, daily range): BP systolic 122–179; BP diastolic 56–85; PULSE 67–91; RESP 19–20
[2019-04-23] MEDS: ACETAMINOPHEN 325 MG TAB PO PRN (04:53)
[2019-04-23] MEDS: hydrALAzine 20 MG INJ IV PRN (07:39)
[2019-04-23] MEDS: HYDROCODONE/APAP (5/325) TAB PO PRN (08:05)
[2019-04-23] MEDS: ALPRAZOLAM 0.5 MG TAB PO PRN (08:05)
[2019-04-23] MEDS: RANITIDINE 150 MG TAB PO SCH (08:40)
[2019-04-23] MEDS: ASPIRIN 81 MG TAB PO SCH (08:41)
[2019-04-23] MEDS ORDERED: KETOROLAC 30 MG INJ IV PRN (09:00)
[2019-04-23] MEDS ORDERED: ENALAPRIL 5 MG TAB PO SCH (09:00)
[2019-04-23] MEDS ORDERED: NAPROXEN 500 MG TAB PO SCH (10:30)
--- NOTE | 2019-04-23 13:23 | PN ---
Date/Time of Note Date/Time of Note DATE: 04/23/19 TIME: Assessment/Plan VTE Prophylaxis Risk score (from Nsg)>0 risk: 4 SCD applied (from Nsg): No SCD contraindicated: low risk/ambulating Pharmacological prophylaxis: NA/contraindicated Pharm contraindication: low risk/ambulating Lines/Catheters IV Catheter Type (from Nrsg): Saline Lock Urinary Cath still in place: No Assessment/Plan Assessment/Plan 1. Acute headache - may be secondary to anxiety causing increase in blood pressure - given pain control and encourage patient to relax - CT head negative for acute issues 2. Lower back pain - will start on Naproxen for relief and heating pad ordered 3. Acute chest pain- resolved - s/p LHC and no acute obstructive coronary disease noted - Cleared for discharge from Cardiology standpoint - negative serial troponins - morphine and Nitro PRN pain 4. HTN - stable - elevated with anxiety 3. Bradycardia - hold BB 4. Disposition - Once back pain improves and able to ambulate, will d/c home - Discussed plan of care with son and need for patients anxiety level to decrease to prevent further issues. Result Diagram: 04/22/19 0552 04/22/19 0552 Subjective 24 Hr Interval Summary Free Text/Dictation Patient is complaining of severe headache and lower back pain radiating to legs bilaterally. Son at bedside and discussed clean cath and neg CT head. Most of patients symptoms stem from high anxiety which he is aware of. Exam/Review of Systems Exam Vitals Vital Signs Date Temp Pulse Resp B/P (MAP) Pulse Ox O2 O2 Flow FiO2 Time Delivery Rate 04/23/19 68 12:15 04/23/19 98.5 20 133/63 90 Room Air 11:17 (86) 04/22/19 2.0 12:30 Intake and Output 04/22/19 04/22/19 04/23/19 1515:00 23:00 07:00 IntakeIntake Total 200 ml 240 ml 800 ml OutputOutput Total 650 ml BalanceBalance -450 ml 240 ml 800 ml Exam General: distress secondary to pain and anxiety Neck: Supple Chest: Nontender Lungs: Clear to auscultation bilaterally no crackles rales or wheezing Heart: Normal S1-S2, Regular rhythm and rate. No murmur, S3, or S4 Abdomen: Soft , nontender, nondistended , bowel sounds are present. No guarding no rebound tenderness Extremities: Normal to inspection, no edema no cyanosis Spine: tenderness lumbar area with spasm of muscles noted Medications Medication Current Medications IV Flush (NS 3 ml) 3 ml PER PROTOCOL IV ; Start 04/20/19 at 17:30 Acetaminophen/ Hydrocodone Bitart ([place] (5/325)) 1 tab Q6H PRN PO .MOD PAIN 4- 6 Last administered on 04/23/19 08:05; Admin Dose 1 TAB; Start 04/20/19 at 17:30 Aspirin (Aspirin) 81 mg DAILY PO Last administered on 04/23/19 08:41; Admin Dose 81 MG; Start 04/21/19 at 09:00 Atorvastatin Calcium (Lipitor) 80 mg HS PO Last administered on 04/22/19 21:02; Admin Dose 80 MG; Start 04/20/19 at 21:00 Alprazolam (Xanax) 0.5 mg DAILY PRN PO ANXIETY Last administered on 04/23/19 08:05; Admin Dose 0.5 MG; Start 04/20/19 at 17:30 Ranitidine HCl (Zantac) 150 mg Q12 PO Last administered on 04/23/19 08:40; Admin Dose 150 MG; Start 04/20/19 at 21:00 Acetaminophen (Tylenol Tab) 650 mg Q6H PRN PO MILD PAIN(1-3)OR ELEVATED TEMP Last administered on 04/23/19 04:53; Admin Dose 650 MG; Start 04/21/19 at 06:30 Nitroglycerin (Nitroglycerin (Sl Tab) 0.4 Mg) 1 tab Q5M PRN SL ANGINA; Start 04/21/19 at 15:00 Acetaminophen (Tylenol Tab) 650 mg Q4H PRN PO NON-CARDIAC PAIN LEVEL (1-3); Start 04/22/19 at 10:30 Al Hydrox/Mg Hydrox/Simethicone (Mag-Al Plus) 30 ml Q4H PRN PO GASTROINTESTINAL UPSET Last administered on 04/23/19 04:53; Admin Dose 30 ML; Start 04/22/19 at 10:30 Ondansetron HCl (Zofran Inj) 4 mg Q4H PRN IV NAUSEA AND/OR VOMITING Last administered on 04/22/19at 23:34; Admin Dose 4 MG; Start 04/22/19 at 10:30 Tramadol HCl (Ultram) 50 mg Q6H PRN PO MODERATE PAIN LEVEL 4-6 Last adminis tered on 04/23/19at 08:58; Admin Dose 50 MG; Start 04/22/19 at 14:30 Enalapril Maleate (Vasotec) 10 mg DAILY PO Last administered on 04/23/19 08:41; Admin Dose 10 MG; Start 04/23/19 at 09:00 Hydralazine HCl (Apresoline) 10 mg Q4H PRN IV ELEVATED BLOOD PRESSURE Last administered on 04/23/19 07:39; Admin Dose 10 MG; Start 04/22/19 at 22:30 Sodium Chloride 1,000 ml @ 60 mls/hr [id number] IV Last administered on 04/22/19at 22:30; Admin Dose 60 MLS/HR; Start 04/22/19 at 22:30 Ketorolac Tromethamine (Toradol) 30 mg Q6H PRN IV PAIN Last administered on 04/23/19 08:57; Admin Dose 30 MG; Start 04/23/19 at 09:00; Stop 04/26/19 at 08:59 Naproxen (Naprosyn) 500 mg BID PO ; Start 04/23/19 at 10:30; Status Hold BENJAMIN MILLER MD Apr 23, 2019 13:23
--- NOTE | 2019-04-23 14:28 | CONS ---
Assessment/Plan Assessment/Plan Hospital Course (Demo Recall) IMPRESSION: 1. Chest pain, assess for acute coronary syndrome with the patient developed chest pain and reported EKG changes during stress testing, now been transferred to hospital. 2. Abnormal electrocardiogram with anterior T-wave inversions. 3. Bradycardia, intermittent down to the 40s. 4. Tremulousness. 5. Anxiety. 6. Psychiatric disorder. 7. Dyslipidemia. 8. Headache and back pain/generalized body pain complaints today REcc: -Tele -Continue asa -Contnue statin -Continue ACEI -Now s/p [facility] with no sig cad. OK for d/c l from cardiac stendpoint Consultation Date/Type/Reason Admit Date/Time Apr 21, 2019 at 23:14 Initial Consult Date 04/21/19 Type of Consult Cardiology Reason for Consultation chest pain Requesting Provider: BENJAMIN MILLER MD Date/Time of Note DATE: 04/23/19 TIME: 14:26 Exam/Review of Systems Vital Signs Vitals Vital Signs Date Temp Pulse Resp B/P (MAP) Pulse Ox O2 O2 Flow FiO2 Time Delivery Rate 04/23/19 68 12:15 04/23/19 98.5 20 133/63 90 Room Air 11:17 (86) 04/22/19 2.0 12:30 Intake and Output 04/22/19 04/22/19 04/23/19 1515:00 23:00 07:00 IntakeIntake Total 200 ml 240 ml 800 ml OutputOutput Total 650 ml BalanceBalance -450 ml 240 ml 800 ml Exam Exam Review of Systems: CONSTITUTIONAL: No fevers, chills. PULMONARY: No sob CARDIOVASCULAR: No chest pain/palpitations GASTROINTESTINAL: No nausea/vomiting. GENITOURINARY: No hematuria/dysuria. MUSCULOSKELETAL: No myagias/arthalgias. PSYCHIATRIC: anxiety NEUROLOGIC: No weakness Constitutional: alert, oriented Psych: no complaints Head: normocephalic ENMT: mucosa pink and moist Neck: supple, jvd (9 cm water) Respiratory: diminished breath sounds Cardiovascular: regular rate and rhythm Gastrointestinal: soft, non-tender Musculoskeletal: muscle tone (normal) Extremities: edema (none) Neurological: other (No focal deficits) Labs Result Diagram: 04/22/19 0552 04/22/19 0552 Medications Medications Current Medications IV Flush (NS 3 ml) 3 ml PER PROTOCOL IV ; Start 04/20/19 at 17:30 Acetaminophen/ Hydrocodone Bitart ([place] (5/325)) 1 tab Q6H PRN PO .MOD PAIN 4- 6 Last administered on 04/23/19 08:05; Admin Dose 1 TAB; Start 04/20/19 at 17:30 Aspirin (Aspirin) 81 mg DAILY PO Last administered on 04/23/19 08:41; Admin Dose 81 MG; Start 04/21/19 at 09:00 Atorvastatin Calcium (Lipitor) 80 mg HS PO Last administered on 04/22/19 21:02; Admin Dose 80 MG; Start 04/20/19 at 21:00 Alprazolam (Xanax) 0.5 mg DAILY PRN PO ANXIETY Last administered on 04/23/19 08:05; Admin Dose 0.5 MG; Start 04/20/19 at 17:30 Ranitidine HCl (Zantac) 150 mg Q12 PO Last administered on 04/23/19 08:40; Ad min Dose 150 MG; Start 04/20/19 at 21:00 Acetaminophen (Tylenol Tab) 650 mg Q6H PRN PO MILD PAIN(1-3)OR ELEVATED TEMP Last administered on 04/23/19 04:53; Admin Dose 650 MG; Start 04/21/19 at 06:30 Nitroglycerin (Nitroglycerin (Sl Tab) 0.4 Mg) 1 tab Q5M PRN SL ANGINA; Start 04/21/19 at 15:00 Acetaminophen (Tylenol Tab) 650 mg Q4H PRN PO NON-CARDIAC PAIN LEVEL (1-3); Start 04/22/19 at 10:30 Al Hydrox/Mg Hydrox/Simethicone (Mag-Al Plus) 30 ml Q4H PRN PO GASTROINTESTINAL UPSET Last administered on 04/23/19 04:53; Admin Dose 30 ML; Start 04/22/19 at 10:30 Ondansetron HCl (Zofran Inj) 4 mg Q4H PRN IV NAUSEA AND/OR VOMITING Last administered on 04/22/19 23:34; Admin Dose 4 MG; Start 04/22/19 at 10:30 Tramadol HCl (Ultram) 50 mg Q6H PRN PO MODERATE PAIN LEVEL 4-6 Last administered on 04/23/19 08:58; Admin Dose 50 MG; Start 04/22/19 at 14:30 Enalapril Maleate (Vasotec) 10 mg DAILY PO Last administered on 04/23/19at 08:41; Admin Dose 10 MG; Start 04/23/19 at 09:00 Hydralazine HCl (Apresoline) 10 mg Q4H PRN IV ELEVATED BLOOD PRESSURE Last administered on 04/23/19at 07:39; Admin Dose 10 MG; Start 04/22/19 at 22:30 Sodium Chloride 1,000 ml @ 60 mls/hr [id number] IV Last administered on 04/22/19at 22:30; Admin Dose 60 MLS/HR; Start 04/22/19 at 22:30 Ketorolac Tromethamine (Toradol) 30 mg Q6H PRN IV PAIN Last administered on 04/23/19at 08:57; Admin Dose 30 MG; Start 04/23/19 at 09:00; Stop 04/26/19 at 08:59 Naproxen (Naprosyn) 500 mg BID PO ; Start 04/23/19 at 10:30; Status Hold JAYANT SPAIN Apr 23, 2019 14:28
[2019-04-23] MEDS ORDERED: RANI150T5 PO (15:28)
[2019-04-23] MEDS ORDERED: TRAM50TA2 PO (15:28)
[2019-04-23] MEDS ORDERED: ATOR-2 PO (15:28)
[2019-04-23] MEDS ORDERED: ENAL10TA PO (15:28)
[2019-04-23] MEDS ORDERED: ASPI-831 PO (15:28)
[2019-04-23] MEDS ORDERED: ALPR0.5T6 PO (15:28)
[2019-04-23] MEDS ORDERED: NAPR-985 PO (15:28)
--- NOTE | 2019-04-23 15:36 | PDOCDIS ---
Discharge Instructions DIAGNOSIS Discharge Diagnosis 1. Acute headache 2. Lower back pain 3. Acute chest pain- resolved 4. HTN 5. Bradycardia CONDITION [id number] Patient Condition: [id number] Stable HOME CARE INSTRUCTIONS: [id number] Diet Instructions: [id number] Low Fat /Cholesterol ACTIVITY: [id number] Activity Restrictions: [id number] No Restrictions FOLLOW UP/APPOINTMENTS Follow-up Plan 1. Follow up with your primary care physician in 1-2 weeks 2. Follow up with Dr. Murray in 2 weeks. Please call his office to schedule an appointment 3. Your lower back pain is causing the pain in your legs. Take Tramadol as needed for severe pain but best to take Naproxen to help decrease inflammation. Use heating pad as well to relax your muscles. 4. Take Xanax as needed for anxiety symptoms but it is important not to drive while on this medication 5. Your Enalapril was increased to 10mg to help control your blood pressure 6. Due to low heart rate your Atenolol was held during hospital stay. If your heart rate does increase to 80-100s please call your electric installer regarding restarting. During hospitalization, your heart rate was in the 50-60s while on the medication which may have been contributing to some of your symptoms 7. If experiencing any concerning symptoms, please go to the closest emergency department. BENJAMIN MILLER MD Apr 23, 2019 15:36
--- NOTE | 2019-04-23 15:41 | DS ---
Date/Time of Note Date/Time of Note DATE: 04/23/19 TIME: 15:36 Discharge Summary Admission/Discharge Info Admit Date/Time Apr 21, 2019 at 23:14 Discharge Date/Time 04/23/19 Discharge Diagnosis 1. Acute headache 2. Lower back pain 3. Acute chest pain- resolved 4. HTN 5. Bradycardia Patient Condition: Stable Consults Cardiology- Dr. Velasquez Procedures DATE OF PROCEDURE: 04/21/2019 TYPE OF PROCEDURE: 1. Left heart catheterization. 2. Coronary angiography. 3. Measurement of left ventricular end-diastolic pressure. 4. Moderate conscious sedation. ATTENDING PHYSICIAN: Fredy Velasquez MD Hx of Present Illness 63 yo female with reported history of CAD who presents from [facility] after abnormal stress test Patient has had exertional angina over past weeks. 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 This was done at [facility]. During stress testing she became hypotensive with chest pain and dizziness. She was given nitro without much relief. She was sent to the ED where troponin was negative. Found to have some bradycardia. Early R wave progression and some T wave abnormalities. Sent her for angiography. Currently feels well. No complaints at this time Hospital Course Patient was admitted for workup after findings of positive stress test. Cardiology was consulted and patient was taken for cardiac catheterization which was negative for acute ischemia. Patient developed severe headache and back pain following the procedure. She was started on pain control and imaging studies of head were performed with no acute abnormalities found. Patient was very anxious and discussion was held that anxiety was contributing to her symptoms. Patient was cleared by Cardiology for discharge home. Patient was able to ambulate around the room and vitals remained stable. She was discharged home in good condition. Home Meds Active Scripts Tramadol HCl (Tramadol HCl) 50 Mg Tablet, 50 MG PO Q6H PRN for MODERATE PAIN LEVEL 4-6 for 5 Days, #30 TAB Prov:BENJAMIN MILLER MD 04/23/19 Naproxen* (Naprosyn*) 500 Mg Tablet, 500 MG PO BID for 14 Days, #28 TAB Prov:BENJAMIN MILLER MD 04/23/19 Aspirin (Aspirin) 81 Mg Chew, 81 MG PO DAILY for 30 Days, #30 TAB Prov:BENJAMIN MILLER MD 04/23/19 Atorvastatin* (Atorvastatin*) 80 Mg Tablet, 80 MG PO HS for 30 Days, #30 TAB 1 Refill Prov:BENJAMIN MILLER MD 04/23/19 Enalapril Maleate* (Enalapril Maleate*) 10 Mg Tablet, 10 MG PO DAILY for 30 Days, #30 TAB 1 Refill Prov:BENJAMIN MILLER MD 04/23/19 Ranitidine Hcl* (Ranitidine Hcl*) 150 Mg Tablet, 150 MG PO Q12 for 30 Days, #60 TAB 1 Refill Prov:BENJAMIN MILLER MD 04/23/19 Alprazolam* (Alprazolam*) 0.5 Mg Tablet, 0.5 MG PO DAILY PRN for ANXIETY for 20 Days, #20 TAB Prov:BENJAMIN MILLER MD 04/23/19 Reported Medications Nitroglycerin* (Nitroglycerin* SL) 0.4 Mg Tab.subl, 0.4 MG SL Q5MIN PRN for CHEST PAIN, BOTTLE 04/20/19 [place]-3 Fatty Acids/Fish Oil ([place] 3 1,000 mg Softgel) 1 Each Capsule, 1 EACH PO BID, CAP 04/20/19 Acetaminophen* (Acetaminophen*) 325 Mg Tablet, 325 MG PO DAILY PRN for PAIN AND OR ELEVATED TEMP, #30 TAB 04/20/19 Discontinued Reported Medications Enalapril Maleate* (Enalapril Maleate*) 5 Mg Tablet, 5 MG PO DAILY, TAB 04/20/19 Omeprazole* (Omeprazole*) 20 Mg Capsule.dr, 20 MG PO DAILY, #30 CAP 04/20/19 Atenolol* (Atenolol*) 50 Mg Tablet, 50 MG PO DAILY, #30 TAB 04/20/19 Meloxicam* (Mobic*) 15 Mg Tablet, 15 MG PO DAILY, #30 TAB 04/20/19 Alprazolam* (Xanax*) 0.25 Mg Tablet, 0.25 MG PO for ANXIETY, TAB 07/10/15 Omeprazole* (Omeprazole*) 20 Mg Capsule.dr, 20 MG PO DAILY 03/14/12 Simvastatin (Simvastatin) 40 Mg Tablet, 40 MG PO HS 03/14/12 Carvedilol* (Carvedilol*) 12.5 Mg Tablet, 12.5 MG PO BID 03/14/12 Citalopram Hydrobromide* (Citalopram Hydrobromide*) 10 Mg Tablet, 10 MG PO DAILY 03/14/12 Lovastatin* (Lovastatin*) 20 Mg Tablet, 20 MG PO DAILY 03/14/12 Acetaminophen (Q-Pap Extra Strength) 500 Mg Tablet, 500 MG PO BID 03/14/12 [Family Did Not Bring] No Conflict Check 03/13/12 Follow-up Plan 1. Follow up with your primary care physician in 1-2 weeks 2. Follow up with Dr. Murray in 2 weeks. Please call his office to schedule an appointment 3. Your lower back pain is causing the pain in your legs. Take Tramadol as needed for severe pain but best to take Naproxen to help decrease inflammation. Use heating pad as well to relax your muscles. 4. Take Xanax as needed for anxiety symptoms but it is important not to drive while on this medication 5. Your Enalapril was increased to 10mg to help control your blood pressure 6. Due to low heart rate your Atenolol was held during hospital stay. If your heart rate does increase to 80-100s please call your powder and primer canning leader regarding restarting. During hospitalization, your heart rate was in the 50-60s while on the medication which may have been contributing to some of your symptoms 7. If experiencing any concerning symptoms, please go to the closest emergency department. Primary Care Provider Nuvia Pope Time spent on discharge: > 30 minutes BENJAMIN MILLER MD Apr 23, 2019 15:41
== END 2019-04-23 16:30 | disposition home or self-care (01) | DRG 287 ==
LOC: E/R 15:54 → 6WM 17:02 → SUATTDRO 17:12 → 6WM 04-21 16:18 → OBSVTOIN 04-21 23:14
PROVIDERS: ADMIT Internal Medicine; ATTEND Internal Medicine
PROC: 4A023N7 Measurement of Cardiac Sampling and Pressure, Left Heart, Percutaneous Approach (ICD-10-PCS; principal; 2019-04-21)
PROC: B2101ZZ Fluoroscopy of Single Coronary Artery using Low Osmolar Contrast (ICD-10-PCS; 2019-04-21)
PROC: 4A033BC Measurement of Arterial Pressure, Coronary, Percutaneous Approach (ICD-10-PCS; 2019-04-21)
DX: I25.10 Atherosclerotic heart disease of native coronary artery without angina pectoris (principal); R51 Headache; M54.5 Low back pain; I10 Essential (primary) hypertension; R00.1 Bradycardia, unspecified; F41.9 Anxiety disorder, unspecified; E78.5 Hyperlipidemia, unspecified; F99 Mental disorder, not otherwise specified
CPT/HCPCS: 70450; 71045; 80048; 80053; 82550; 82553; 83036; 84484; 85025; 85610; 85730; 93005; 93306; 93458; 96374; 96375; G0378; C1769; C1887; J0360; J1644; J1885; J2250; J2270; J2405; J3010; J7030; Q9967

== ENCOUNTER 2019-08-05 23:56 | Observation (INO) | payer MEDICARE, BC ==
[~2019-08-05] VITALS: Ht 157.5 cm; Wt 58.1 kg
[~2019-08-05 23:56] MED LIST changes: +ACET325T45 PO; -ACET500T84 PO; -ALPR0.25 PO; +ALPR0.5T6 PO; +ASPI-831 PO; +ATEN50TA PO; +ATOR-2 PO; +CITA10TA10 PO; -CITA10TA5 PO; +ENAL10TA PO; -LOVA20TA PO; +NAPR-985 PO; +NITR0.4T32 SL; +OMEG1CAP90 PO; -OMEP20CA16 PO; +PANT40TA3 PO; +RANI150T5 PO; -SIMV40TA3 PO; +TRAM50TA2 PO; -[UNRECOGNIZED DRUG - REMARK]
[2019-08-06 00:30] VITALS: BP 119/59; PULSE 75; RESP 20
[2019-08-06 00:51] VITALS: Ht 157.5 cm; Wt 58.1 kg
[2019-08-06 04:00] VITALS: BP 131/62; PULSE 74; RESP 20
[2019-08-06] MEDS ORDERED: ALPRAZOLAM 0.5 MG TAB PO PRN ×2 (06:00)
[2019-08-06] MEDS ORDERED: NITROGLYCERIN (SL) 0.4 MG TAB SL PRN (06:00)
[2019-08-06] MEDS ORDERED: ACETAMINOPHEN 325 MG TAB PO PRN (06:00)
[2019-08-06] MEDS ORDERED: traMADol 50 MG TAB PO PRN (06:00)
[2019-08-06] MEDS ORDERED: NACL 0.9% 3 ML SYG IV SCH (06:00)
[2019-08-06] MEDS ORDERED: ALBUTEROL/IPRATROPIUM (NEB) 3 ML AMP HHN PRN (06:00)
[2019-08-06] MEDS ORDERED: HYDROCODONE/APAP (5/325) TAB PO ONE (06:30)
[2019-08-06] MEDS ORDERED: FATTY ACIDS PO SCH (09:00)
[2019-08-06] MEDS ORDERED: FISH OIL PO SCH (09:00)
[2019-08-06] MEDS ORDERED: RANITIDINE 150 MG TAB PO SCH (09:00)
[2019-08-06] MEDS ORDERED: CITALOPRAM 20 MG TAB PO SCH (09:00)
[2019-08-06] MEDS ORDERED: NAPROXEN 500 MG TAB PO SCH (09:00)
[2019-08-06] MEDS ORDERED: ASPIRIN 81 MG TAB PO SCH (09:00)
[2019-08-06] MEDS ORDERED: FISH OIL 1,000 MG CAP PO SCH (09:00)
[2019-08-06] MEDS ORDERED: [UNRECOGNIZED DRUG - OTHER] PO SCH (09:00)
[2019-08-06] MEDS ORDERED: ENALAPRIL 10 MG TAB PO SCH (09:00)
[2019-08-06] MEDS ORDERED: OMEGA PO SCH (09:00)
[2019-08-06] MEDS ORDERED: ENOXAPARIN 40 MG/0.4 ML SYG SC SCH (09:00)
[2019-08-06 09:41] VITALS: BP 134/60; PULSE 77; RESP 20
[2019-08-06 13:07] VITALS: BP 116/59; PULSE 66; RESP 20
[2019-08-06] MEDS ORDERED: ATORVASTATIN 80 MG TAB PO SCH (21:00)
== END 2019-08-06 17:05 | disposition home or self-care (01) ==
LOC: 6WM 23:56 → INTOOBSV 23:56
PROVIDERS: ADMIT Internal Medicine; ATTEND Internal Medicine
DX: R53.1 Weakness (principal); R20.0 Anesthesia of skin; I25.10 Atherosclerotic heart disease of native coronary artery without angina pectoris; E78.5 Hyperlipidemia, unspecified; I10 Essential (primary) hypertension; K21.9 Gastro-esophageal reflux disease without esophagitis; F41.9 Anxiety disorder, unspecified
CPT/HCPCS: 70551; 80053; 80061; 82550; 82553; 83036; 84443; 84484; 85025; 96372; 97162; G0378; J1650; 99217